=== PATIENT | male | born 1970 | race Caucasian/White ===

== ENCOUNTER 2021-06-11 11:12 | Outpatient (CLI) | payer BC | END 2021-06-11 11:13 | disposition home or self-care (01) | LOC: MADLAB 11:12 → MADRAD 11:13 | PROVIDERS: ATTEND Family Medicine | DX: R31.0 Gross hematuria (principal); R10.9 Unspecified abdominal pain; R30.0 Dysuria; N28.89 Other specified disorders of kidney and ureter; S37.22XA Contusion of bladder, initial encounter; N32.89 Other specified disorders of bladder | CPT/HCPCS: 74176 ==

== ENCOUNTER 2021-08-03 09:30 | Emergency (ER) | payer BC ==
[2021-08-03] MEDS ORDERED: Morphine 4 MG/ML VIAL ONE (10:06)
== END 2021-08-03 10:34 | disposition home or self-care (01) ==
LOC: MADERS 09:30
DX: M10.9 Gout, unspecified (principal); Z85.528 Personal history of other malignant neoplasm of kidney; Z79.899 Other long term (current) drug therapy
CPT/HCPCS: 96372; 99283; J2270

== ENCOUNTER 2021-10-15 22:21 | Emergency (ER) | payer BC ==
[2021-10-15 22:55] LABS: Bilirubin Negative (Negative); Blood, Urine Small (Negative); Clarity Clear (Clear); Glucose, Urine (Dipstick) Negative (Negative); Ketone, Urine Negative (Negative); Leukocyte Negative (Negative); Nitrite Negative (Negative); Protein, Urine (Dipstick) Negative (Neg-Trace); Urobilinogen 0.2 mg/dL (Less than 2); pH, Urine 5.5 (5.0-9.0)
[2021-10-15 23:00] LABS: Bacteria/HPF Rare-Few HPF (None Seen); Specific Gravity, Urine 1.006 (1.002-1.036)
[2021-10-15] MEDS ORDERED: Morphine 4 MG/ML VIAL ONE (23:19)
[2021-10-15] MEDS ORDERED: Ketorolac Tromethamine 30 MG/ML VIAL ONE (23:19)
[2021-10-15 23:20] LABS: #Basophils 0.1 thou/uL (0.0-0.2); #Eosinphils 0.7 thou/uL (0.0-0.7); #Lymphocytes 1.4 thou/uL (1.20-3.40); #Monocytes 0.9 thou/uL (0.11-0.59); #Neutrophils 5.4 thou/uL (1.40-6.50); %Basophils 1.4 % (0.0-1.0); %Eosinophils 8.1 % (0.0-10.0); %Lymphocytes 16.1 % (21.0-51.0); %Monocytes 10.1 % (0.0-10.0); %Neutrophils 64.4 % (42.0-75.0); Hemoglobin 13.4 g/dL (14.0-18.0); Mean Corpuscular HGB CONC 31.6 g/dL (32.0-36.0); Mean Corpuscular Volume 82.4 fL (78.0-98.0); Mean Platelet Volume 9.7 fL (7.4-10.4); Platelet Count 266 thou/uL (130-400); RBC Distribution Width 15.1 % (11.5-14.5); Red Blood Cell (RBC) Count 5.16 mill/uL (4.70-6.10); White Blood Cell (WBC) Count 8.4 thou/uL (4.8-10.8)
[2021-10-15] MEDS ORDERED: Sodium Chloride 0.9% 1,000 ML ONE (23:25)
[2021-10-15 23:40] LABS: ALT (SGPT) 35 U/L (8-55); Albumin 3.9 g/dL (3.5-5.0); Alkaline Phosphatase 112 U/L (40-110); Anion Gap 16 mmol/L (10-20); BUN (Urea Nitrogen) 32 mg/dL (8.4-25.7); Bilirubin, Total 0.2 mg/dL (0.2-1.2); Calc. Creatinine Clearance 0 mL/min (70-130); Calcium 9.5 mg/dL (7.8-10.44); Carbon Dioxide 21 mmol/L (22-29); Chloride 106 mmol/L (98-107); Estimated GFR 55; Globulin 4.3 g/dL (2.4-3.5); Glucose 138 mg/dL (70-105); Potassium 4.8 mmol/L (3.5-5.1); Protein, Total 8.2 g/dL (6.0-8.3); Sodium 138 mmol/L (136-145)
[2021-10-15 23:45] LABS: AST (SGOT) 29 U/L (5-34)
[2021-10-16] MEDS ORDERED: cefTRIAXone\\ROCEPHIN 1 GM VIAL ONE (00:43)
[2021-10-16] MEDS ORDERED: Morphine 4 MG/ML VIAL ONE (12:28)
== END 2021-10-16 14:28 | disposition short-term general hospital (02) ==
LOC: MADERS 22:21
DX: N10 Acute pyelonephritis (principal); N17.9 Acute kidney failure, unspecified; M10.9 Gout, unspecified; Z85.528 Personal history of other malignant neoplasm of kidney; Z85.118 Personal history of other malignant neoplasm of bronchus and lung; Z79.01 Long term (current) use of anticoagulants; Z79.899 Other long term (current) drug therapy
CPT/HCPCS: 74176; 80053; 81003; 81015; 83605; 85025; 87040; 87086; 96361; 96365; 96375; 96376; J0696; J1885; J2270; J7050

== ENCOUNTER 2022-02-09 16:15 | Emergency (ER) | payer BC | END 2022-02-09 18:14 | disposition home or self-care (01) | LOC: MADERS 16:15 | DX: S43.62XA Sprain of left sternoclavicular joint, initial encounter (principal); Y93.69 Activity, other involving other sports and athletics played as a team or group; Z79.01 Long term (current) use of anticoagulants ==

== ENCOUNTER 2022-03-28 10:54 | Outpatient (CLI) | payer BC | END 2022-03-28 10:55 | disposition home or self-care (01) | LOC: MADRAD 10:54 | PROVIDERS: ATTEND Family Medicine | DX: R07.89 Other chest pain (principal) | CPT/HCPCS: 71046 ==